=== PATIENT | male | born 1945 | race Caucasian/White ===

== ENCOUNTER 2016-09-07 08:48 | Outpatient (CLI) ==
[2016-09-07 09:13] LABS: HEMATOCRIT 43.9 % (42.0-52.0); HEMOGLOBIN 15.4 g/dl (14.0-18.0); MEAN CORPUSCULAR HEMOGLOBIN 29.5 pg (27.0-31.0); MEAN CORPUSCULAR HGB CONC 35.1 (31.8-35.4); MEAN CORPUSCULAR VOLUME 84.1 fl (80.0-94.0); RED BLOOD COUNT 5.22 10^6/ul (4.70-6.10); WHITE BLOOD COUNT 4.84 K/ul (4.2-10.2)
[2016-09-07 09:31] LABS: ALBUMIN 3.9 g/dL (3.4-5.0); ANION GAP 10.2; BUN/CREATININE RATIO 11.42; CALCIUM 9.1 mg/dL (8.2-10.2); CREATININE 1.4 mg/dL (0.60-1.10); PHOSPHORUS 2.7 mg/dL (2.3-3.7); POTASSIUM 4.2 mmol/L (3.5-5.1); URIC ACID 6.9 mg/dL (2.6-7.2)
[2016-09-08 08:15] LABS: URINE CREATINE 274.4 mg/dL (Not Estab.)
== END 2016-09-07 08:49 | disposition home or self-care (01) ==
LOC: LAB 08:48
PROVIDERS: ATTEND Specialist
DX: N18.3 Chronic kidney disease, stage 3 (moderate) (principal)
CPT/HCPCS: 36415; 80069; 82570; 83970; 84156; 84550; 85027

== ENCOUNTER 2017-04-06 06:42 | Outpatient (CLI) ==
[2017-04-06 07:20] LABS: ALBUMIN 3.7 g/dL (3.4-5.0); ANION GAP 12.2; BUN/CREATININE RATIO 13.55; CALCIUM 9.4 mg/dL (8.2-10.2); CREATININE 1.18 mg/dL (0.60-1.10); PHOSPHORUS 2.8 mg/dL (2.3-3.7); POTASSIUM 4.2 mmol/L (3.5-5.1); URIC ACID 6.1 mg/dL (2.6-7.2)
[2017-04-07 15:15] LABS: URINE CREATININE 263.6 mg/dL (Not Estab.); URINE TOTAL PROTEIN 13.7 mg/dL (Not Estab.)
== END 2017-04-06 06:43 | disposition home or self-care (01) ==
LOC: LAB 06:42
PROVIDERS: ATTEND Specialist
DX: N18.3 Chronic kidney disease, stage 3 (moderate) (principal)
CPT/HCPCS: 36415; 80069; 82570; 83970; 84156; 84550

== ENCOUNTER 2017-10-15 08:29 | Outpatient (CLI) | END 2017-10-15 08:30 | disposition home or self-care (01) | LOC: LAB 08:29 | PROVIDERS: ATTEND Specialist | DX: N18.2 Chronic kidney disease, stage 2 (mild) (principal) | CPT/HCPCS: 36415; 80069; 82570; 83970; 84156; 84550; 85027 ==

== ENCOUNTER 2019-01-08 12:51 | Outpatient (CLI) | payer OTHER ==
--- NOTE | 2019-01-08 15:22 | DI ---
EXAM: Two views of the chest. History: Chronic obstructive pulmonary disease Findings: Heart size is normal. No focal consolidation. No appreciable pleural fluid and no pneumo thorax. No acute osseous abnormalities. Calcified granulomas are seen within the thorax. Impression: No acute cardiopulmonary process
== END 2019-01-08 12:52 | disposition home or self-care (01) ==
LOC: CAR 12:51 → EEVIPCON 13:00
PROVIDERS: ATTEND Internal Medicine
DX: R06.02 Shortness of breath (principal); J44.9 Chronic obstructive pulmonary disease, unspecified

== ENCOUNTER 2024-06-21 09:00 | Observation (INO) ==
--- NOTE | 2024-06-21 09:10 | ED.PDOC ---
General ED Provider: Dr. ABI NICHOLE MD Chief Complaint: Stroke Stated Complaint: Patient is a 78-year-old male with past medical history of Parkinson's disease, hypertension, hyperlipidemia who presents with complaint of confusion. The patient states that from around 6:30 AM yesterday till 7 PM he was confused where he could not do the things with his camper which she regularly does and could not figure out how to do it and even in the later of the day he was thinking his flashlight was cell phone and when he realized it was not the cell phone he could not operate his cell phone. Patient has chronic dizziness which is unchanged. Patient denies any headache, lightheadedness, blurry vision, tingling numbness or weakness of the extremities or any slurring of the speech. Patient denies any chest pain or shortness of breath. Patient denies any fever or chills or upper respiratory symptoms or nausea or vomiting or abdominal pain or diarrhea or any urinary symptoms. Patient states that it had happened once in the past. Patient denies any recent illnesses. Time Seen by Provider: 06/21/24 09:06 Mode of Arrival: Walk-In Information Source: Patient and Family Exam Limitations: No limitations Primary Care Provider: DOUG CHANDRA Nursing and Triage Documentation Reviewed and Agree: Yes What is Opioid Naive?: *Opioid Naive implies the patient is not already taking opioids or not chronically receiving opioids on a daily basis. *PRN dosing is not "usually" associated with tolerance. *Patients are at higher risk of over-sedation and aspiration. What is Opioid Tolerant?: *Opioid Tolerance implies less than the expected response to an opioid. *Acquired tolerance is defined by the patient taking 60mg of oral morphine daily (or equianalgesic dose of another opioid) for 1 week or more. *Often associated with chronic pain. *May take more than usual dose to achieve desired pain control. Neurological Deficit Complaint/Exam Patient Complains of: Reports Other (Confusion) Symptom Onset Unknown: No Symptom Onset Date: 06/20/24 Symptom Onset Time: 06:30 Onset: Sudden Symptoms Are: Resolved NIH Scale Score (see protocol): 0 IV t-PA Prescribed: No Reasons for not prescribing IV t-PA: Pt non compliant/refused (Not indicated as patient's symptoms have resolved.) Review of Systems Review Of Systems Constitutional: Reports No symptoms Eyes: Reports No symptoms Ears, Nose, Mouth, Throat: Reports No symptoms Respiratory: Reports No symptoms Cardiac: Reports No symptoms GI: Reports No symptoms : Reports No symptoms Musculoskeletal: Reports No symptoms Skin: Reports No symptoms Neurological: Reports Other (Confusion) Endocrine: Reports No symptoms Hematologic/Lymphatic: Reports No symptoms All Other Systems: Reviewed and Negative [facility] Medical History (Updated 06/22/24 @ 02:41 by ABI NICHOLE MD) Parkinsons disease G20.A1 - Parkinson's disease without dyskinesia, without mention of fluctuations (ICD-10) Fatty liver K76.0 - Fatty (change of) liver, not elsewhere classified (ICD-10) Diabetes type 2 E11.9 - Type 2 diabetes mellitus without complications (ICD-10) HLD (hyperlipidemia) E78.5 - Hyperlipidemia, unspecified (ICD-10) HTN (hypertension) I10 - Essential (primary) hypertension (ICD-10) TIA (transient ischemic attack) G45.9 - Transient cerebral ischemic attack, unspecified (ICD-10) Physical Exam Physical Exam Appearance: Reports Well-appearing, No pain distress and Well-nourished Ill-appearing: None Pain Distress: None Eyes: Reports ROB, EOMI and Conjunctiva clear ENT: Reports Ears normal, Nose normal and Oropharynx normal Neck: Supple Respiratory: Reports Breath sounds clear, Breath sounds equal and Respirations nonlabored Cardiovascular: Reports RRR, Pulses normal and No murmur GI/: Reports Soft and Nontender Musculoskeletal: Reports Normal strength, ROM intact, No edema and No calf tenderness Skin: Reports Warm and Normal color Neurological: Reports Sensation intact, Motor intact, Reflexes intact, Cranial nerves intact, Alert and Oriented; Denies Focal Deficit Psychiatric: Reports Affect appropriate and Mood appropriate Interpretation EKG Interpretation EKG Interpretation By: ED Physician Time of EKG #1: 09:23 Rate: Normal (73) Rhythm: Sinus Ectopy: None [place]: NL ST Segment: Normal Interpretation: NSR, heart rate of 73 bpm, normal intervals. No STEMI. Course Course 06/21/24 09:10 06/21/24 09:10 Orders, Labs, Meds: Lab Review 06/21/24 06/21/24 06/21/24 09:10 10:05 10:18 WBC 3.98 L RBC 4.61 L Hgb 14.0 Hct 40.7 L MCV 88.3 MCH 30.4 MCHC 34.4 RDW Coeff of Susan 13.4 Plt Count 157 Immature Gran % (Auto) 0.0 Neut % (Auto) 61.8 Lymph % (Auto) 28.1 [place] % (Auto) 7.3 Eos % (Auto) 2.3 Baso % (Auto) 0.5 Neut # (Auto) 2.5 Lymph # (Auto) 1.1 [place] # (Auto) 0.3 L Eos # (Auto) 0.1 Baso # (Auto) 0.0 Immature Gran # (Auto) 0.0 Sodium 138.7 Potassium 3.80 Chloride 105.3 Carbon Dioxide 26.4 Anion Gap 10.80 BUN 19.4 Creatinine 1.10 Estimated GFR (MDRD) 65.00 BUN/Creatinine Ratio 17.63 Glucose 166.5 H Calcium 8.86 Magnesium 1.98 Total Bilirubin 1.02 AST 25.6 ALT 15.5 Alkaline Phosphatase 69.9 Troponin I < 0.012 Total Protein 6.79 Albumin 3.95 Globulin 2.84 Albumin/Globulin Ratio 1.39 Urine Color Yellow Urine Clarity Clear Urine pH 6.0 Ur Specific [place] >=1.030 Urine Protein 1+ H Urine Glucose (UA) Negative Urine Ketones Trace H Urine Blood Negative Urine Nitrite Negative Urine Bilirubin Negative Urine Urobilinogen 0.2 Ur Leukocyte Esterase Negative Urine Opiates Screen Negative Ur Oxycodone Screen Negative Urine Methadone Screen Negative Ur Barbiturates Screen Negative U Tricyclic Antidepress Negative Ur Phencyclidine Scrn Negative Ur Amphetamine Screen Negative U Methamphetamines Scrn Negative U Benzodiazepines Scrn Negative Urine Cocaine Screen Negative U Cannabinoids Screen Negative Plasma/Serum Alcohol < 10.0 Influ A Molecular Assay Influ B Molecular Assay SARS CoV-2 RNA Rapid BECCA Negative 06/21/24 11:45 WBC RBC Hgb Hct MCV MCH MCHC RDW Coeff of Susan Plt Count Immature Gran % (Auto) Neut % (Auto) Lymph % (Auto) [place] % (Auto) Eos % (Auto) Baso % (Auto) Neut # (Auto) Lymph # (Auto) [place] # (Auto) Eos # (Auto) Baso # (Auto) Immature Gran # (Auto) Sodium Potassium Chloride Carbon Dioxide Anion Gap BUN Creatinine Estimated GFR (MDRD) BUN/Creatinine Ratio Glucose Calcium Magnesium Total Bilirubin AST ALT Alkaline Phosphatase Troponin I Total Protein Albumin Globulin Albumin/Globulin Ratio Urine Color Urine Clarity Urine pH Ur Specific [place] Urine Protein Urine Glucose (UA) Urine Ketones Urine Blood Urine Nitrite Urine Bilirubin Urine Urobilinogen Ur Leukocyte Esterase Urine Opiates Screen Ur Oxycodone Screen Urine Methadone Screen Ur Barbiturates Screen U Tricyclic Antidepress Ur Phencyclidine Scrn Ur Amphetamine Screen U Methamphetamines Scrn U Benzodiazepines Scrn Urine Cocaine Screen U Cannabinoids Screen Plasma/Serum Alcohol Influ A Molecular Assay Negative by naat Influ B Molecular Assay Negative by naat SARS CoV-2 RNA Rapid BECCA Orders Category Date Time Status ADMIT OBSERVATION [PLACE PATIENT OBSERVATION] .TO ADMISSION 06/21/24 12:19 Active MEDSURG (MONITORED BED) EKG-(ED ONLY) Stat CARDIO 06/21/24 09:09 Completed ACTIVITY .Early Mobilization for VTE Prevention CARE 06/21/24 12:22 Active INTAKE & OUTPUT Q8HR CARE 06/21/24 12:22 Active TELEMETRY MONITORING TELE CARE 06/21/24 12:19 Active VITAL SIGNS Q4HR CARE 06/21/24 12:22 Active Orthostatic Vital Signs [ED ORTHOSTATIC VITAL SIGNS] . EMERGENCY 06/21/24 09:09 Active ONCE ALCOHOL LEVEL [BLOOD ALCOHOL] Stat LAB 06/21/24 09:10 Completed CBC W/ AUTO DIFF DAILY@0600 LAB 06/22/24 06:00 Ordered CBC W/ AUTO DIFF DAILY@0600 LAB 06/23/24 06:00 Ordered CBC W/ AUTO DIFF Stat LAB 06/21/24 09:10 Completed CMP [COMPREHENSIVE METABOLIC PANEL] Stat LAB 06/21/24 09:10 Completed COMPREHENSIVE METABOLIC PANEL DAILY@0600 LAB 06/22/24 06:00 Ordered COMPREHENSIVE METABOLIC PANEL DAILY@0600 LAB 06/23/24 06:00 Ordered FLU A & B MOLECULAR [FLU A/B MOLECULAR] Stat LAB 06/21/24 11:45 Completed MAGNESIUM Stat LAB 06/21/24 09:10 Completed SARS COV-2 RNA RAPID BECCA Stat LAB 06/21/24 10:18 Completed TROPONIN I Stat LAB 06/21/24 09:10 Completed UA [URINALYSIS C & S IF INDICATED] Stat LAB 06/21/24 10:05 Completed URINE DRUG SCREEN (RAPID FOR ED) [DRUG SCREEN, URINE, LAB 06/21/24 10:05 Completed RAPID] Stat Acetaminophen [Tylenol] Meds 06/21/24 12:22 Active 650 mg PO Q4H PRN Sodium Chloride 0.9% [Sodium Chloride] 1,000 ml Meds 06/21/24 12:30 Active IV 75 mls/hr CHEST, 1V AP ONLY Stat RADS 06/21/24 09:[address] HEAD W/O CONTRAST Stat RADS 06/21/24 09:27 Completed Medications Generic Name Dose Route Start Last Admin Trade Name Freq PRN Reason Stop Dose Admin Acetaminophen 650 mg 06/21/24 12:22 Acetaminophen 325 Mg Tablet PO Q4H PRN Mild Pain Atorvastatin Calcium 10 mg 06/22/24 09:00 Atorvastatin Calcium 10 Mg Tablet PO DAILY SYED Carbidopa/Levodopa 2 tab 06/21/24 21:00 06/21/24 20:45 Carbidopa/Levodopa 25/100 Tablet PO 2 tab 3XD SYED Administration Docusate Sodium 250 mg 06/22/24 09:00 Docusate Sodium 100 Mg Capsule PO DAILY SYED Sodium Chloride 1,000 mls @ 75 mls/hr 06/21/24 12:30 06/22/24 02:24 Sodium Chloride IV 75 mls/hr .[id number] SYED Administration Pantoprazole Sodium 40 mg 06/22/24 06:30 Pantoprazole Sodium 40 Mg Tablet. PO 0630 SYED Sitagliptin Phosphate 100 mg 06/22/24 09:00 Sitagliptin Phosphate 50 Mg Tablet PO DAILY SYED Vital Signs: Temp Pulse Resp BP Pulse Ox 06/21/24 09:45 79 148/78 H 06/21/24 09:44 74 172/77 H 06/21/24 09:44 68 119/79 06/21/24 09:02 99.5 F 78 16 161/73 H 97 Differential diagnosis include but not limited to TIA, CVA, hypoglycemia, seizure, hemiplegic migraines, Parkinson's, hyponatremia, hyponatremia, arrhythmia. ER course: Patient is a 78-year-old male who presented with almost 24 hours of onset of confusion which now has resolved. Patient was worked up for TIA/CVA. CT of the head was discussed with the radiologist who informed it is negative for any acute findings. The tremor patient has is from his Parkinson's which is at his baseline. Will admit the patient further stroke workup. Discussed with Martell Rahman NP for the hospitalist Dr. Luis Carlos Treadwell. Patient admitted to the floors. NIH Stroke Scale 1a. Level of Consciousness: 0=Alert and keenly responsive 1b. Level of Consciousness Questions: 0=Answers correctly to two questions 1c. Level of Consciousness Commands: 0=Performs two tasks correctly 2. Best Gaze: 0=Normal 3. Visual: 0=No visual loss 4. Facial Palsy: 0=Normal 5a. Motor Left Arm: 0=No drift,arm holds 90 degrees for 10 sec., leg 30 degrees for 5 sec. 5b. Motor Right Arm: 0=No drift,arm holds 90 degrees for 10 sec., leg 30 degrees for 5 sec. 6a. Motor Left Le=No drift,arm holds 90 degrees for 10 sec., leg 30 degrees for 5 sec. 6b. Motor Right Le=No drift,arm holds 90 degrees for 10 sec., leg 30 degrees for 5 sec. 7. Limb Ataxia: 0=Absent 8. Sensory: 0=Normal 9. Best Language: 0=No aphasia 10. Dysarthria: 0=Normal 11. Extincion and Inattention: 0=Normal Stroke Scale Total: 0 Discharge Plan Discharge Patient Disposition: ADMITTED INPATIENT Discharge Problem: Brain TIA, Confusion after a seizure Did you review [place] [facility] for ALL controlled substances?: Not Applicable ED Provider: ABI NICHOLE
[2024-06-21 09:20] LABS: BASOPHILS % (AUTO) 0.5 % (0.0-3.0); EOSINOPHILS # (AUTO) 0.1 K/ul (0.0-0.7); EOSINOPHILS % (AUTO) 2.3 % (0.0-7.0); HEMATOCRIT 40.7 % (42.0-52.0); LYMPHOCYTES # (AUTO) 1.1 K/uL (0.60-3.4); LYMPHOCYTES % (AUTO) 28.1 (10.0-50.0); MEAN CORPUSCULAR HEMOGLOBIN 30.4 pg (27.0-31.0); MEAN CORPUSCULAR HGB CONC 34.4 (31.8-35.4); MEAN CORPUSCULAR VOLUME 88.3 fl (80.0-94.0); MONOCYTES # (AUTO) 0.3 K/uL (0.4-2.0); MONOCYTES % (AUTO) 7.3 (0-10); NEUTROPHILS # (AUTO) 2.5 K/ul (2.0-6.9); NEUTROPHILS % (AUTO) 61.8 % (42.2-75.2); PLATELET COUNT 157 10^3/uL (140-440); RDW COEFFICIENT OF VARIATION 13.4 % (11.6-14.8); RED BLOOD COUNT 4.61 10^6/ul (4.70-6.10); WHITE BLOOD COUNT 3.98 K/ul (4.2-10.2)
[2024-06-21 09:32] LABS: ALANINE AMINOTRANSFERASE 15.5 U/L (0-50); ALBUMIN 3.95 g/dL (3.5-5.0); ALKALINE PHOSPHATASE 69.9 U/L (56-119); ASPARTATE AMINO TRANSFERASE 25.6 U/L (17-59); BILIRUBIN,TOTAL 1.02 mg/dL (0.2-1.3); BLOOD UREA NITROGEN 19.4 mg/dL (9-20); CALCIUM 8.86 mg/dL (8.4-10.2); CARBON DIOXIDE 26.4 mmol/L (22-30.0); CHLORIDE 105.3 mmol/L (98-107); GLUCOSE 166.5 mg/dL (74-106); MAGNESIUM 1.98 mg/dL (1.6-2.3); SODIUM 138.7 mmol/L (134.5-145); TOTAL PROTEIN 6.79 g/dL (6.3-8.2)
[2024-06-21 09:43] LABS: BLOOD ALCOHOL < 10.0 mg/dL (0.0-50.0); TROPONIN I < 0.012 ng/ml (0.0000-0.120)
--- NOTE | 2024-06-21 09:52 | CT ---
EXAM: BRAIN CT WITHOUT CONTRAST 06/21/2024 INDICATION: Stroke like symptoms COMPARISON: None. TECHNIQUE: Unenhanced CT of the head was performed from the skull base to the vertex. FINDINGS: No intracranial hemorrhage or extra-axial collection. No mass, mass effect or midline shift. The juan -white matter differentiation is preserved. Cerebral volume loss. There are patchy subcortical and pe riventricular white matter hypodensities, most commonly seen in chronic white matter microvascular is chemic changes. No acute hydrocephalus. The basal cisterns are patent. The visualized paranasal sin uses and mastoid air cells are clear. The orbits are unremarkable. The visualized osseous structure s are unremarkable. IMPRESSION: - No acute intracranial hemorrhage or mass effect. MRI can be obtained for further evaluation as clin ically indicated. - Senescent changes. Communication: Findings in the impression were discussed with Dr. Huitron by Dr. Waller at 9:[address] scans are performed using dose optimization techniques as appropriate to the performed exam an d include at least one of the following: Automated exposure control, adjustment of the mA and/or kV according t o size, and the use of iterative reconstruction technique.
--- NOTE | 2024-06-21 09:55 | DI ---
EXAM: SINGLE FRONTAL VIEW OF THE CHEST HISTORY: Shortness of breath. COMPARISON: Chest x-ray 01/08/2019 FINDINGS: The cardiomediastinal silhouette is unchanged. There is no pneumothorax or effusion. Ther e is no consolidation, nodule or mass. The osseous structures demonstrate degenerative change. IMPRESSION: No acute cardiopulmonary process
[2024-06-21 10:36] LABS: SARS COV-2 RNA RAPID NAAT NEGATIVE (NEGATIVE)
[2024-06-21 10:43] LABS: BILIRUBIN,URINE Negative (NEGATIVE); CLARITY,URINE Clear (CLEAR); COLOR,URINE Yellow (YELLOW); GLUCOSE, URINE (UA) Negative (NEGATIVE); KETONES,URINE Trace (NEGATIVE); LEUKOCYTE ESTERASE ,URINE Negative (NEGATIVE); NITRITE,URINE Negative (NEGATIVE); PROTEIN,URINE 1+ (NEGATIVE); URINE, BLOOD Negative (NEGATIVE); UROBILINOGEN,URINE 0.2 (0.2)
[2024-06-21 10:49] LABS: AMPHETAMINE SCREEN,URINE NEGATIVE (NEGATIVE); BARBITURATE SCREEN,URINE NEGATIVE (NEGATIVE); BENZODIAZEPINES SCREEN,URINE NEGATIVE (NEGATIVE); CANNABINOID SCREEN,URINE NEGATIVE (NEGATIVE); COCAIN SCREEN,URINE NEGATIVE (NEGATIVE); METHADONE URINE SCREEN NEGATIVE (NEGATIVE); METHAMPHETAMINES SCREEN,URINE NEGATIVE (NEGATIVE); OPIATE SCREEN,URINE NEGATIVE (NEGATIVE); OXYCODONE URINE SCREEN NEGATIVE (NEGATIVE); PHENCYCLIDINE SCREEN,URINE NEGATIVE (NEGATIVE); TRICYCLIC ANTIDEPRESSANTS URIN NEGATIVE (NEGATIVE)
[2024-06-21 12:04] LABS: MOLECULAR FLU A NEGATIVE BY NAAT (NEGATIVE); MOLECULAR FLU B NEGATIVE BY NAAT (NEGATIVE)
[2024-06-21] MEDS ORDERED: TYLENOL PO PRN (12:22)
[2024-06-21] MEDS: SODIUM CHLORIDE 1,000 ML IV SCH (13:55)
--- NOTE | 2024-06-21 14:02 | PCM ---
Date of Service Date Seen by Provider: 06/21/24 Time Seen by Provider: 13:45 Admit Day/Time Admission Date: 06/21/24 Admission Time: 11:40 Reason for Admission Chief Complaint: TIA Hospital Provider Hospital Provider: SHELLIE CHADWICK, [facility] [place] Primary Care Physician Primary Care Physician: DOUG CHANDRA History of Present Illness History of Present Illness: 78 yo male with pmh of TIA, Parkinson's disease, HTN, HLD, DM2, and Fatty Liver presented to the ER with AMS. Patient states that last night around 6 pm he noticed he could not get his phone to work and could not figure out how to work it. Then later on in the night when going to bed he was trying to turn on the flashlight on his phone and couldn't. States he just felt different and wasn't tracking well. No signs of weakness, vision deficits, speech deficits, or other symptoms. States he has been dealing with ongoing dizziness. Most recent changes include: neurologist increasing his carbidopa/levodopa dose to 25/100 2 tabs TID from 1 tab on 04/14/24, stopped plavix on 04/17/24, and having frequent dizziness at home PCP decreased his benicar dose due to lower BPs. States he has not been able to tell a difference in his tremors with the dosage increase of his carbidopa. Dizziness continues to persist despite blood pressure medicine decrease. CT head negative. Labs unremarkable. Orthostatic vital signs positive from sitting to standing with a systolic drop from 172 to 148. Admitted to med/surg observation. Case Discussed With Case Discussed With: Patient's case was discussed with the ER Physicians, Dr. Brennan. [facility] Medical History (Updated 06/21/24 @ 14:11 by SHELLIE CHADWICK) Parkinsons disease G20.A1 - Parkinson's disease without dyskinesia, without mention of fluctuations (ICD-10) Fatty liver K76.0 - Fatty (change of) liver, not elsewhere classified (ICD-10) Diabetes type 2 E11.9 - Type 2 diabetes mellitus without complications (ICD-10) HLD (hyperlipidemia) E78.5 - Hyperlipidemia, unspecified (ICD-10) HTN (hypertension) I10 - Essential (primary) hypertension (ICD-10) TIA (transient ischemic attack) G45.9 - Transient cerebral ischemic attack, unspecified (ICD-10) Allergies Allergies Allergy/AdvReac Type Severity Reaction Status Date / Time prochlorperazine (From AdvReac Intermediate SPASM Verified 06/21/24 09:11 Compazine) Current Medications Home Medications Acetaminophen (Acetaminophen 325 Mg Tablet) 650 mg PO Q4H PRN PRN Reason: Mild Pain Sodium Chloride (Sodium Chloride) 1,000 mls @ 75 mls/hr IV .[id number] SYED Last Admin: 06/21/24 13:55 Dose: 75 mls/hr clopidogrel 75 mg tablet (Plavix) 75 mg PO DAILY 07/07/22 [History Confirmed 06/21/24] esomeprazole magnesium 40 mg capsule,delayed release (Nexium) 40 mg PO DAILY 07/07/22 [History Confirmed 06/21/24] olmesartan 20 mg tablet (Benicar) 20 mg PO DAILY 07/07/22 [History Confirmed 06/21/24] sitagliptin phosphate 100 mg tablet (Januvia) 100 mg PO DAILY 07/07/22 [History Confirmed 06/21/24] atorvastatin 10 mg tablet 10 mg PO DAILY 06/21/24 [History Confirmed 06/21/24] carbidopa 25 mg-levodopa 100 mg tablet 2 tab PO 3XD 06/21/24 [History Confirmed 06/21/24] docusate sodium 250 mg capsule 250 mg PO DAILY 06/21/24 [History Confirmed 06/21/24] Opioid Naive vs. Tolerant Does Patient Take Opioids?: No Is Patient Opioid Naive?: Yes What is Opioid Naive?: *Opioid Naive implies the patient is not already taking opioids or not chronically receiving opioids on a daily basis. *PRN dosing is not "usually" associated with tolerance. *Patients are at higher risk of over-sedation and aspiration. Is Patient Opioid Tolerant?: No What is Opioid Tolerant?: *Opioid Tolerance implies less than the expected response to an opioid. *Acquired tolerance is defined by the patient taking 60mg of oral morphine daily (or equianalgesic dose of another opioid) for 1 week or more. *Often associated with chronic pain. *May take more than usual dose to achieve desired pain control. Review of Systems Constitutional: Reports No symptoms Head: Reports Normocephalic Eyes: Reports No symptoms Ears: Reports No symptoms Nose: Reports No symptoms Mouth: Reports No symptoms Throat: Reports No symptoms Cardiovascular: Reports No symptoms Respiratory: Reports No symptoms Gastrointestinal: Reports No symptoms Genitourinary: Reports No Symptoms Musculoskeletal: Reports No symptoms Endocrine: Reports No symptoms Hematology: Reports No symptoms Neurological: Reports Dizziness and Memory Loss (confusion/forgetfulness) Psychiatric: Reports No symptoms Physical examination Most Recent Vital Signs: Most Recent Vital Signs Temperature 99.5 F 06/21/24 09:02 Temperature Source Temporal Artery Scan 06/21/24 09:02 Pulse Rate 79 06/21/24 09:45 Respiratory Rate 16 06/21/24 09:02 Blood Pressure 148/78 H 06/21/24 09:45 Blood Pressure Location Left Arm 06/21/24 09:45 Blood Pressure Position Standing 06/21/24 09:45 O2 Sat by Pulse Oximetry 97 06/21/24 09:02 Height 6 ft 06/21/24 09:02 Weight 77.9 kg 06/21/24 09:02 Appearance: Positive No Apparent Distress and Alert and Oriented x3 Skin: Positive Warm and Good Turgor HEENT: Positive Normocephalic and PERRLA Neck: Positive Supple and Midline Trachea Chest/Lungs: Positive Symmetrical With Equal Breath Sounds, Clear to Auscultation Bilaterally and Good Air Movement all 4 Lung Platt Heart: Positive RRR and Pulses Normal GI/: Positive Soft, Nontender, Bowel Sounds Normal and No Distention Musculoskeletal: Positive Not Examined Extremities: Positive Intact Peripheral Pulses, Stable Joints Without Laxity and Good ROM in All Joints Neurological: Positive Sensation Intact, Motor intact, Reflexes Intact (diminished, baseline per chart review), Alert, Oriented and Muscle Strength 5/5 in Upper and Lower Extremities Bilaterally; Negative Focal Deficit Labs This Visit Labs This Visit: Labs This Visit 06/21/24 06/21/24 06/21/24 09:10 10:05 10:18 WBC 3.98 L RBC 4.61 L Hgb 14.0 Hct 40.7 L MCV 88.3 MCH 30.4 MCHC 34.4 RDW Coeff of Susan 13.4 Plt Count 157 Immature Gran % (Auto) 0.0 Neut % (Auto) 61.8 Lymph % (Auto) 28.1 [place] % (Auto) 7.3 Eos % (Auto) 2.3 Baso % (Auto) 0.5 Neut # (Auto) 2.5 Lymph # (Auto) 1.1 [place] # (Auto) 0.3 L Eos # (Auto) 0.1 Baso # (Auto) 0.0 Immature Gran # (Auto) 0.0 Sodium 138.7 Potassium 3.80 Chloride 105.3 Carbon Dioxide 26.4 Anion Gap 10.80 BUN 19.4 Creatinine 1.10 Estimated GFR (MDRD) 65.00 BUN/Creatinine Ratio 17.63 Glucose 166.5 H Calcium 8.86 Magnesium 1.98 Total Bilirubin 1.02 AST 25.6 ALT 15.5 Alkaline Phosphatase 69.9 Troponin I < 0.012 Total Protein 6.79 Albumin 3.95 Globulin 2.84 Albumin/Globulin Ratio 1.39 Urine Color Yellow Urine Clarity Clear Urine pH 6.0 Ur Specific [place] >=1.030 Urine Protein 1+ H Urine Glucose (UA) Negative Urine Ketones Trace H Urine Blood Negative Urine Nitrite Negative Urine Bilirubin Negative Urine Urobilinogen 0.2 Ur Leukocyte Esterase Negative Urine Opiates Screen Negative Ur Oxycodone Screen Negative Urine Methadone Screen Negative Ur Barbiturates Screen Negative U Tricyclic Antidepress Negative Ur Phencyclidine Scrn Negative Ur Amphetamine Screen Negative U Methamphetamines Scrn Negative U Benzodiazepines Scrn Negative Urine Cocaine Screen Negative U Cannabinoids Screen Negative Plasma/Serum Alcohol < 10.0 Influ A Molecular Assay Influ B Molecular Assay SARS CoV-2 RNA Rapid BECCA Negative 06/21/24 11:45 WBC RBC Hgb Hct MCV MCH MCHC RDW Coeff of Susan Plt Count Immature Gran % (Auto) Neut % (Auto) Lymph % (Auto) [place] % (Auto) Eos % (Auto) Baso % (Auto) Neut # (Auto) Lymph # (Auto) [place] # (Auto) Eos # (Auto) Baso # (Auto) Immature Gran # (Auto) Sodium Potassium Chloride Carbon Dioxide Anion Gap BUN Creatinine Estimated GFR (MDRD) BUN/Creatinine Ratio Glucose Calcium Magnesium Total Bilirubin AST ALT Alkaline Phosphatase Troponin I Total Protein Albumin Globulin Albumin/Globulin Ratio Urine Color Urine Clarity Urine pH Ur Specific [place] Urine Protein Urine Glucose (UA) Urine Ketones Urine Blood Urine Nitrite Urine Bilirubin Urine Urobilinogen Ur Leukocyte Esterase Urine Opiates Screen Ur Oxycodone Screen Urine Methadone Screen Ur Barbiturates Screen U Tricyclic Antidepress Ur Phencyclidine Scrn Ur Amphetamine Screen U Methamphetamines Scrn U Benzodiazepines Scrn Urine Cocaine Screen U Cannabinoids Screen Plasma/Serum Alcohol Influ A Molecular Assay Negative by naat Influ B Molecular Assay Negative by naat SARS CoV-2 RNA Rapid BECCA Imaging Imaging: EXAM: BRAIN CT WITHOUT CONTRAST 06/21/2024 FINDINGS: No intracranial hemorrhage or extra-axial collection. No mass, mass effect or midline shift. The juan-white matter differentiation is preserved. Cerebral volume loss. There are patchy subcortical and periventricular white matter hypodensities, most commonly seen in chronic white matter microvascular ischemic changes. No acute hydrocephalus. The basal cisterns are patent. The visualized paranasal sinuses and mastoid air cells are clear. The orbits are unremarkable. The visualized osseous structures are unremarkable. IMPRESSION: - No acute intracranial hemorrhage or mass effect. MRI can be obtained for further evaluation as clinically indicated. - Senescent changes. Communication: Findings in the impression were discussed with Dr. Huitron by Dr. Waller at 9:46 AM Review Statement Review Statement: I have independently reviewed and interpreted the labs/EKGs/imaging that were ordered by the ER provider. I have reviewed all outside records that are available currently in our EMR including imaging/notes/labs from previous visits. Plan Plan: 1. TIA - work-up for CVA negative thus far, unable to get MRI until Sunday or Sunday, discussed could potentially order outpatient if patient requests, symptoms have resolved currently, discussed anticoagulation with patient and requested I discuss with his prior to starting anything, neurochecks Q4H 2. Orthostatic Hypotension - NS@75mL/hr, hold antihypertensives, serial orthostatics Q8H 3. Parkionson's disease - Chronic, follows with [facility], continue home medications 4. DM2 - chronic, ADA diet, continue januvia DVT Prophylaxis: Ambulation Time Spent: Greater than 80 minutes spent with patient, 50% of the time spent with this patient was devoted to counseling and coordination of care. [facility] minutes spent discussing advance care planning. Disposition: Admit to: Med/surg Observation Full code Discussed Plan of Care with Dr. Nakita Treadwell. Medications Medication Orders: Medications Ordered Category Date Time Status Acetaminophen [Tylenol] Meds 06/21/24 12:22 Active 650 mg PO Q4H PRN Sodium Chloride 0.9% [Sodium Chloride] 1,000 ml Meds 06/21/24 12:30 Active IV 75 mls/hr
[2024-06-21 14:23] VITALS: BMI 23.2
[2024-06-21] MEDS: SINEMET 25-100 PO SCH (20:45)
[2024-06-22] MEDS: PROTONIX PO SCH (05:35)
[2024-06-22 06:05] LABS: BASOPHILS % (AUTO) 0.6 % (0.0-3.0); EOSINOPHILS # (AUTO) 0.1 K/ul (0.0-0.7); EOSINOPHILS % (AUTO) 3.5 % (0.0-7.0); HEMATOCRIT 38.2 % (42.0-52.0); HEMOGLOBIN 12.9 g/dl (14.0-18.0); LYMPHOCYTES # (AUTO) 0.9 K/uL (0.60-3.4); LYMPHOCYTES % (AUTO) 28.1 (10.0-50.0); MEAN CORPUSCULAR HEMOGLOBIN 30.1 pg (27.0-31.0); MEAN CORPUSCULAR HGB CONC 33.8 (31.8-35.4); MONOCYTES # (AUTO) 0.3 K/uL (0.4-2.0); MONOCYTES % (AUTO) 8.8 (0-10); NEUTROPHILS # (AUTO) 1.9 K/ul (2.0-6.9); PLATELET COUNT 128 10^3/uL (140-440); RDW COEFFICIENT OF VARIATION 13.4 % (11.6-14.8); RED BLOOD COUNT 4.29 10^6/ul (4.70-6.10); WHITE BLOOD COUNT 3.17 K/ul (4.2-10.2)
[2024-06-22 06:23] LABS: ALANINE AMINOTRANSFERASE 6.8 U/L (0-50); ALBUMIN 3.47 g/dL (3.5-5.0); ALKALINE PHOSPHATASE 61.5 U/L (56-119); ASPARTATE AMINO TRANSFERASE 26.5 U/L (17-59); BILIRUBIN,TOTAL 0.85 mg/dL (0.2-1.3); BLOOD UREA NITROGEN 14.4 mg/dL (9-20); CALCIUM 8.36 mg/dL (8.4-10.2); CARBON DIOXIDE 25.8 mmol/L (22-30.0); CHLORIDE 105.5 mmol/L (98-107); CREATININE 1.03 mg/dL (0.60-1.10); GLUCOSE 144.7 mg/dL (74-106); POTASSIUM 3.75 mmol/L (3.5-5.1); SODIUM 138.7 mmol/L (134.5-145); TOTAL PROTEIN 6.13 g/dL (6.3-8.2)
[2024-06-22] MEDS ORDERED: COLACE PO SCH (09:00)
[2024-06-22] MEDS: JANUVIA PO SCH (09:19)
[2024-06-22] MEDS: COLACE PO SCH (09:19)
[2024-06-22] MEDS: LIPITOR PO SCH (09:19)
[2024-06-22] MEDS: SODIUM CHLORIDE 1,000 ML IV SCH (12:17)
--- NOTE | 2024-06-22 12:41 | PCM.PROG ---
Provider Provider: SHELLIE CHADWICK, [facility] Chief Complaint Chief Complaint: TIA Subjective Subjective: No further episodes. Continues to be orthostatic with fluids. at bedside. Discussed plavix and does not wish to restart at this time due to unsure if patient has had CVA/TIA or if this is due to orthostatic hypotension. discussed to continue fluids another 24 hours and lower carbidopa/levodopa back down to 1 tab tid and see if improvement is noted. Objective Appearance: Positive No Apparent Distress and Alert and Oriented x3 Chest/Lungs: Positive Symmetrical With Equal Breath Sounds, Clear to Auscultation Bilaterally and Good Air Movement all 4 Lung Platt Heart: Positive RRR and Pulses Normal GI/: Positive Soft, Nontender, Bowel Sounds Normal and No Distention Musculoskeletal: Positive Not Examined Neurological: Positive Sensation Intact, Motor intact, Alert, Oriented and Muscle Strength 5/5 in Upper and Lower Extremities Bilaterally Vital Signs Vital Signs: Vital Signs: Last 24 Hours 06/21/24 13:38 06/21/24 13:38 06/21/24 13:55 Temperature 97.7 F Temperature Source Tympanic Pulse Rate 75 Pulse Rate [Apical] Respiratory Rate 16 16 Blood Pressure Blood Pressure Mean Blood Pressure Left Arm 155/92 Blood Pressure Location Blood Pressure Position Sitting O2 Sat by Pulse Oximetry 99 Oxygen Delivery Method Room Air Room Air Height 6 ft Weight 77.7 kg Telemetry Type Remote Telemetry Telemetry Monitoring Started Irregular Telemetry Rate (Approximate) 70-80 BPM Telemetry Heart Rate 73 EKG GA Interval 0.13 EKG QRS Interval 0.06 Telemetry Strip Reading SR 06/21/24 14:00 06/21/24 14:00 06/21/24 14:59 Temperature Temperature Source Pulse Rate 68 79 Pulse Rate [Apical] Respiratory Rate Blood Pressure 139/69 158/77 H Blood Pressure Mean Blood Pressure Left Arm Blood Pressure Location Right Arm Right Arm Blood Pressure Position Supine Sitting O2 Sat by Pulse Oximetry Oxygen Delivery Method Room Air Height Weight Telemetry Type Telemetry Monitoring Irregular Telemetry Rate (Approximate) Telemetry Heart Rate EKG GA Interval EKG QRS Interval Telemetry Strip Reading 06/21/24 15:00 06/21/24 15:00 06/21/24 16:00 Temperature Temperature Source Pulse Rate 94 Pulse Rate [Apical] Respiratory Rate Blood Pressure 115/70 Blood Pressure Mean Blood Pressure Left Arm Blood Pressure Location Right Arm Blood Pressure Position Standing O2 Sat by Pulse Oximetry Oxygen Delivery Method Room Air Room Air Height Weight Telemetry Type Telemetry Monitoring Irregular Telemetry Rate (Approximate) Telemetry Heart Rate EKG GA Interval EKG QRS Interval Telemetry Strip Reading 06/21/24 16:49 06/21/24 18:00 06/21/24 18:00 Temperature 97.9 F Temperature Source Temporal Artery Scan Pulse Rate 77 Pulse Rate [Apical] Respiratory Rate 14 Blood Pressure 118/68 Blood Pressure Mean 84 Blood Pressure Left Arm Blood Pressure Location Right Arm Blood Pressure Position O2 Sat by Pulse Oximetry 97 Oxygen Delivery Method Room Air Room Air Room Air Height Weight Telemetry Type Telemetry Monitoring Irregular Telemetry Rate (Approximate) Telemetry Heart Rate EKG GA Interval EKG QRS Interval Telemetry Strip Reading 06/21/24 19:00 06/21/24 19:00 06/21/24 20:00 Temperature Temperature Source Pulse Rate Pulse Rate [Apical] Respiratory Rate Blood Pressure Blood Pressure Mean Blood Pressure Left Arm Blood Pressure Location Blood Pressure Position O2 Sat by Pulse Oximetry Oxygen Delivery Method Room Air Room Air Height Weight Telemetry Type Bedside Monitor Telemetry Monitoring Continues Irregular Telemetry Rate (Approximate) Telemetry Heart Rate 71 EKG GA Interval 0.17 EKG QRS Interval 0.06 Telemetry Strip Reading SINUS RHYTHM 06/21/24 20:00 06/21/24 20:47 06/21/24 20:48 Temperature 97.8 F Temperature Source Temporal Artery Scan Pulse Rate 77 Pulse Rate [Apical] 70 Respiratory Rate 21 H Blood Pressure 121/72 121/72 Blood Pressure Mean 88 Blood Pressure Left Arm Blood Pressure Location Right Arm Right Arm Blood Pressure Position Standing Standing O2 Sat by Pulse Oximetry 98 Oxygen Delivery Method Room Air Room Air Height Weight Telemetry Type Telemetry Monitoring Irregular Telemetry Rate (Approximate) Telemetry Heart Rate EKG GA Interval EKG QRS Interval Telemetry Strip Reading 06/21/24 20:48 06/21/24 20:49 06/21/24 21:00 Temperature Temperature Source Pulse Rate Pulse Rate [Apical] Respiratory Rate Blood Pressure 126/72 123/69 Blood Pressure Mean Blood Pressure Left Arm Blood Pressure Location Right Arm Right Arm Blood Pressure Position Supine Sitting O2 Sat by Pulse Oximetry Oxygen Delivery Method Room Air Height Weight Telemetry Type Telemetry Monitoring Irregular Telemetry Rate (Approximate) Telemetry Heart Rate EKG GA Interval EKG QRS Interval Telemetry Strip Reading 06/21/24 22:00 06/21/24 23:00 06/22/24 00:00 Temperature Temperature Source Pulse Rate Pulse Rate [Apical] Respiratory Rate Blood Pressure Blood Pressure Mean Blood Pressure Left Arm Blood Pressure Location Blood Pressure Position O2 Sat by Pulse Oximetry Oxygen Delivery Method Room Air Room Air Room Air Height Weight Telemetry Type Telemetry Monitoring Irregular Telemetry Rate (Approximate) Telemetry Heart Rate EKG GA Interval EKG QRS Interval Telemetry Strip Reading 06/22/24 01:00 06/22/24 01:00 06/22/24 02:00 Temperature Temperature Source Pulse Rate 66 Pulse Rate [Apical] Respiratory Rate 16 Blood Pressure Blood Pressure Mean Blood Pressure Left Arm Blood Pressure Location Blood Pressure Position O2 Sat by Pulse Oximetry Oxygen Delivery Method Room Air Room Air Height Weight Telemetry Type Bedside Monitor Telemetry Monitoring Continues Irregular Telemetry Rate (Approximate) Telemetry Heart Rate 88 EKG GA Interval 0.22 H EKG QRS Interval 0.07 Telemetry Strip Reading SINUS RHYTHM WITH 1ST AVB 06/22/24 02:00 06/22/24 03:00 06/22/24 04:00 Temperature Temperature Source Pulse Rate Pulse Rate [Apical] Respiratory Rate Blood Pressure Blood Pressure Mean Blood Pressure Left Arm Blood Pressure Location Blood Pressure Position O2 Sat by Pulse Oximetry Oxygen Delivery Method Room Air Room Air Room Air Height Weight Telemetry Type Telemetry Monitoring Irregular Telemetry Rate (Approximate) Telemetry Heart Rate EKG GA Interval EKG QRS Interval Telemetry Strip Reading 06/22/24 05:00 06/22/24 05:00 06/22/24 05:49 Temperature 97.3 F L Temperature Source Temporal Artery Scan Pulse Rate 66 Pulse Rate [Apical] Respiratory Rate 18 Blood Pressure 138/76 138/76 Blood Pressure Mean 96 Blood Pressure Left Arm Blood Pressure Location Right Arm Right Arm Blood Pressure Position Supine Supine O2 Sat by Pulse Oximetry 99 Oxygen Delivery Method Room Air Room Air Height Weight Telemetry Type Telemetry Monitoring Irregular Telemetry Rate (Approximate) Telemetry Heart Rate EKG GA Interval EKG QRS Interval Telemetry Strip Reading 06/22/24 05:54 06/22/24 05:55 06/22/24 06:00 Temperature Temperature Source Pulse Rate Pulse Rate [Apical] Respiratory Rate Blood Pressure 162/82 H 144/77 H Blood Pressure Mean Blood Pressure Left Arm Blood Pressure Location Right Arm Right Arm Blood Pressure Position Sitting Standing O2 Sat by Pulse Oximetry Oxygen Delivery Method Room Air Height Weight Telemetry Type Telemetry Monitoring Irregular Telemetry Rate (Approximate) Telemetry Heart Rate EKG GA Interval EKG QRS Interval Telemetry Strip Reading 06/22/24 07:00 06/22/24 07:00 06/22/24 08:00 Temperature Temperature Source Pulse Rate Pulse Rate [Apical] Respiratory Rate Blood Pressure Blood Pressure Mean Blood Pressure Left Arm Blood Pressure Location Blood Pressure Position O2 Sat by Pulse Oximetry Oxygen Delivery Method Room Air Room Air Height Weight Telemetry Type Remote Telemetry Telemetry Monitoring Continues Irregular Telemetry Rate (Approximate) 60-70 BPM Telemetry Heart Rate 65 EKG GA Interval 0.17 EKG QRS Interval 0.06 Telemetry Strip Reading sr 06/22/24 09:00 06/22/24 09:58 06/22/24 09:58 Temperature 97.8 F Temperature Source Temporal Artery Scan Pulse Rate 70 Pulse Rate [Apical] Respiratory Rate 18 Blood Pressure 135/75 Blood Pressure Mean 95 Blood Pressure Left Arm Blood Pressure Location Right Arm Blood Pressure Position Supine O2 Sat by Pulse Oximetry 98 Oxygen Delivery Method Room Air Room Air Room Air Height Weight Telemetry Type Telemetry Monitoring Irregular Telemetry Rate (Approximate) Telemetry Heart Rate EKG GA Interval EKG QRS Interval Telemetry Strip Reading 06/22/24 11:00 06/22/24 12:00 Temperature Temperature Source Pulse Rate Pulse Rate [Apical] Respiratory Rate Blood Pressure Blood Pressure Mean Blood Pressure Left Arm Blood Pressure Location Blood Pressure Position O2 Sat by Pulse Oximetry Oxygen Delivery Method Room Air Room Air Height Weight Telemetry Type Telemetry Monitoring Irregular Telemetry Rate (Approximate) Telemetry Heart Rate EKG GA Interval EKG QRS Interval Telemetry Strip Reading Lab Results Lab Results: Lab Results: Last 24 Hours 06/22/24 06:00 WBC 3.17 L RBC 4.29 L Hgb 12.9 L Hct 38.2 L MCV 89.0 MCH 30.1 MCHC 33.8 RDW Coeff of Susan 13.4 Plt Count 128 L Immature Gran % (Auto) 0.0 Neut % (Auto) 59.0 Lymph % (Auto) 28.1 [place] % (Auto) 8.8 Eos % (Auto) 3.5 Baso % (Auto) 0.6 Neut # (Auto) 1.9 L Lymph # (Auto) 0.9 [place] # (Auto) 0.3 L Eos # (Auto) 0.1 Baso # (Auto) 0.0 Immature Gran # (Auto) 0.0 Sodium 138.7 Potassium 3.75 Chloride 105.5 Carbon Dioxide 25.8 Anion Gap 11.15 BUN 14.4 Creatinine 1.03 Estimated GFR (MDRD) 70.00 BUN/Creatinine Ratio 13.98 Glucose 144.7 H Calcium 8.36 L Total Bilirubin 0.85 AST 26.5 ALT 6.8 Alkaline Phosphatase 61.5 Total Protein 6.13 L Albumin 3.47 L Globulin 2.66 Albumin/Globulin Ratio 1.30 Additional Comments Additional Comments: I have independently reviewed and interpreted the labs/EKGs/imaging ordered during this hospital stay. I have reviewed outside records that are available in our EMR that pertain to medical stay including imaging/notes/labs from previous visits. Active Medications Active Medications: Medications Generic Name Dose Route Start Last Admin Trade Name Freq PRN Reason Stop Dose Admin Acetaminophen 650 mg 06/21/24 12:22 Acetaminophen 325 Mg Tablet PO Q4H PRN Mild Pain Atorvastatin Calcium 10 mg 06/22/24 09:00 06/22/24 09:19 Atorvastatin Calcium 10 Mg Tablet PO 10 mg DAILY SYED Administration Carbidopa/Levodopa 1 tab 06/22/24 15:00 Carbidopa/Levodopa 25/100 Tablet PO 3XD SYED Docusate Sodium 200 mg 06/22/24 09:00 06/22/24 09:19 Docusate Sodium 100 Mg Capsule PO 200 mg DAILY SYED Administration Sodium Chloride 1,000 mls @ 100 mls/hr 06/22/24 12:05 06/22/24 12:17 Sodium Chloride IV 100 mls/hr .Q10H SYED Administration Pantoprazole Sodium 40 mg 06/22/24 06:30 06/22/24 05:35 Pantoprazole Sodium 40 Mg Tablet. PO 40 mg 0630 SYED Administration Sitagliptin Phosphate 100 mg 06/22/24 09:00 06/22/24 09:19 Sitagliptin Phosphate 50 Mg Tablet PO 100 mg DAILY SYED Administration Plan Plan: 1. TIA - work-up for CVA negative thus far, unable to get MRI until Sunday or Sunday, discussed could potentially order outpatient if patient requests, symptoms have resolved currently, discussed anticoagulation with patient and requested I discuss with his prior to starting anything, neurochecks Q4H 2. Orthostatic Hypotension - Improving but persists, increase NS to 100mL/hr, hold antihypertensives, serial orthostatics Q8H 3. Parkinson's disease - Chronic, follows with [facility], discussed with patient carbidopa/levodopa side effects mentioned by neurology - agreeable to trial back down to 1 tab TID due to orthostasis 4. DM2 - chronic, ADA diet, continue januvia DVT Prophylaxis: Ambulation Review Statement Review Statement: I have personally discussed and reviewed the patient's visit/currently labs/imaging/decision making with Dr. Treadwell, my supervising attending. Greater that 50 minutes spent with patient, 50% of the time spent with this patient was devoted to counseling and coordination of care.
[2024-06-22] MEDS: SINEMET 25-100 PO SCH (15:25)
[2024-06-23 05:45] LABS: BASOPHILS % (AUTO) 0.3 % (0.0-3.0); EOSINOPHILS # (AUTO) 0.1 K/ul (0.0-0.7); EOSINOPHILS % (AUTO) 2.2 % (0.0-7.0); HEMATOCRIT 36.8 % (42.0-52.0); HEMOGLOBIN 12.6 g/dl (14.0-18.0); IMMATURE GRANULOCYTE % (AUTO) 0.3 % (0.0-5.0); LYMPHOCYTES # (AUTO) 0.8 K/uL (0.60-3.4); LYMPHOCYTES % (AUTO) 24.9 (10.0-50.0); MEAN CORPUSCULAR HEMOGLOBIN 30.8 pg (27.0-31.0); MEAN CORPUSCULAR HGB CONC 34.2 (31.8-35.4); MONOCYTES # (AUTO) 0.3 K/uL (0.4-2.0); MONOCYTES % (AUTO) 8.1 (0-10); NEUTROPHILS # (AUTO) 2.1 K/ul (2.0-6.9); NEUTROPHILS % (AUTO) 64.2 % (42.2-75.2); PLATELET COUNT 123 10^3/uL (140-440); RDW COEFFICIENT OF VARIATION 13.1 % (11.6-14.8); RED BLOOD COUNT 4.09 10^6/ul (4.70-6.10); WHITE BLOOD COUNT 3.21 K/ul (4.2-10.2)
[2024-06-23 05:49] LABS: ALANINE AMINOTRANSFERASE 6.4 U/L (0-50); ALBUMIN 3.35 g/dL (3.5-5.0); ALKALINE PHOSPHATASE 59.5 U/L (56-119); ASPARTATE AMINO TRANSFERASE 22.2 U/L (17-59); BILIRUBIN,TOTAL 0.83 mg/dL (0.2-1.3); BLOOD UREA NITROGEN 11.4 mg/dL (9-20); CALCIUM 8.43 mg/dL (8.4-10.2); CARBON DIOXIDE 29.1 mmol/L (22-30.0); CHLORIDE 107.7 mmol/L (98-107); CREATININE 1.11 mg/dL (0.60-1.10); GLUCOSE 146.4 mg/dL (74-106); POTASSIUM 3.79 mmol/L (3.5-5.1); SODIUM 139.2 mmol/L (134.5-145); TOTAL PROTEIN 5.89 g/dL (6.3-8.2)
[2024-06-23 09:40] VITALS: RESP 16
--- NOTE | 2024-06-23 13:28 | MRI ---
EXAMINATION: MRI BRAIN WITHOUT IV CONTRAST. History: Stroke Technique: Multiplanar, multisequence MRI of the brain without IV contrast. Comparison: CT head 06/21/2024. Findings: Acute infarction in the right thalamus and perez radiata.No acute hemorrhage, mass lesion, midline s hift. Moderate brain atrophy and microvascular disease. Orbits and globes intact. Ventricles appropri ate in size. Basilar cisterns clear. Flow voids demonstrated in the major intracranial vasculature. G rossly normal pituitary and sella. Normal calvarial marrow signal. Paranasal sinuses clear. Impression: Acute infarction right thalamus and perez radiata.
[2024-06-23 14:20] VITALS: BP 108/79; PULSE 96; TEMP 97.8
--- NOTE | 2024-06-23 14:45 | DCSUM ---
Admission Date Admission Date: 06/21/24 Discharge Date Discharge Date: 06/23/24 Admission Diagnosis Admission Diagnosis: 1. TIA vs CVA 2. Orthostatic hypotension Discharge Diagnosis Discharge Diagnosis: 1. 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 Orthostatic Hypotension - improved 3. Parkinson's disease - Chronic, follows with [facility] 4. DM2 Hospital Provider Hospital Provider: HARMEET ZHENG [facility]C, [facility] Primary Care Physician Primary Care Physician: DOUG CHANDRA Summary of History and Physical Summary of History and Physical: 78 yo male with pmh of TIA, Parkinson's disease, HTN, HLD, DM2, and Fatty Liver presented to the ER with AMS. Patient states that last night around 6 pm he noti suzie he could not get his phone to work and could not figure out how to work it. Then later on in the night when going to bed he was trying to turn on the flashlight on his phone and couldn't. States he just felt different and wasn't tracking well. No signs of weakness, vision deficits, speech deficits, or other symptoms. States he has been dealing with ongoing dizziness. Most recent changes include: neurologist increasing his carbidopa/levodopa dose to 25/100 2 tabs TID from 1 tab on 04/14/24, stopped plavix on 04/17/24, and having frequent dizziness at home PCP decreased his benicar dose due to lower BPs. States he has not been able to tell a difference in his tremors with the dosage increase of his carbidopa. Dizziness continues to persist despite blood pressure medicine decrease. CT head negative. Labs unremarkable. Orthostatic vital signs positive from sitting to standing with a systolic drop from 172 to 148. Admitted to med/surg observation. Hospital Course Subjective: Patient hydrated and orthostatics improved, dropping about 20 points systolic today. Denies symptoms today however. He has been ambulatory and doing well. Denies dizziness. Jasper marie applied. His carbidopa/levodopa was decreased to 1 tab TID to see if this helps as well. Pt states the increased dose has not helped his tremors. Potentially could be contributing to his orthostasis. MRI delayed due to no availability over the weekend but once done confirmed CVA showing an acute infarction of right thalamus. Report below. Per records, his pcp had stopped his ASA as well. However patient states he's actually still been taking his baby asa. After shared decision making with the patient and his (who is a health care provider), it was decided to continue baby asa and add plavix back on for now in setting of a new acute stroke. He has a f/u with neuro on 07/14. Encouraged them to discuss the stroke, orthostasis, and medications. Take disc of imaging with you. No events on tele. Will increase statin to 40 mg. Otherwise patient has no deficits currently and he is requesting to go home. Discharged to home in stable condition. Home health ordered. Appearance: Pleasant, No Apparent Distress and Alert HEENT: MMM and Supple CVS: Other (RRR) Abdomen: Soft, Non-Tender and No Distention Respiratory: No Accessory Muscle Use Extremities: No Edema Vital Signs: Most Recent Vital Signs Temperature 97.8 F 06/23/24 14:00 Temperature Source Temporal Artery Scan 06/23/24 14:00 Temperature Source Temporal Artery Scan 06/21/24 09:02 Pulse Rate 96 06/23/24 14:19 Respiratory Rate 16 06/23/24 14:00 Blood Pressure 108/79 06/23/24 14:19 Blood Pressure Mean 95 06/23/24 14:00 Blood Pressure Left Arm 155/92 06/21/24 13:38 Blood Pressure Location Right Arm 06/23/24 14:19 Blood Pressure Position Standing 06/23/24 14:19 O2 Sat by Pulse Oximetry 96 06/23/24 14:00 Oxygen Delivery Method Room Air 06/23/24 14:00 Height 6 ft 06/22/24 18:15 Weight 77.7 kg 06/22/24 18:15 Telemetry Type Bedside Monitor 06/23/24 07:00 Telemetry Monitoring Continues 06/23/24 07:00 Irregular Telemetry Rate (Approximate) 80-90 BPM 06/22/24 13:00 Telemetry Heart Rate 75 06/23/24 07:00 EKG IN Interval 0.18 06/23/24 07:00 EKG QRS Interval 0.10 06/23/24 07:00 Telemetry Strip Reading SR 06/23/24 07:00 Imaging: EXAM: BRAIN CT WITHOUT CONTRAST 06/21/2024 FINDINGS: No intracranial hemorrhage or extra-axial collection. No mass, mass effect or midline shift. The juan-white matter differentiation is preserved. Cerebral volume loss. There are patchy subcortical and periventricular white matter hypodensities, most commonly seen in chronic white matter microvascular ischemic changes. No acute hydrocephalus. The basal cisterns are patent. The visualized paranasal sinuses and mastoid air cells are clear. The orbits are unremarkable. The visualized osseous structures are unremarkable. IMPRESSION: - No acute intracranial hemorrhage or mass effect. MRI can be obtained for further evaluation as clinically indicated. - Senescent changes. Communication: Findings in the impression were discussed with Dr. Huitron by Dr. Waller at 9:46 AM EXAM: SINGLE FRONTAL VIEW OF THE CHEST HISTORY: Shortness of breath. COMPARISON: Chest x-ray 01/08/2019 FINDINGS: The cardiomediastinal silhouette is unchanged. There is no pneumothorax or effusion. There is no consolidation, nodule or mass. The osseous structures demonstrate degenerative change. IMPRESSION: No acute cardiopulmonary process EXAMINATION: MRI BRAIN WITHOUT IV CONTRAST. History: Stroke Technique: Multiplanar, multisequence MRI of the brain without IV contrast. Comparison: CT head 06/21/2024. Findings: Acute infarction in the right thalamus and perez radiata.No acute hemorrhage, mass lesion, midline shift. Moderate brain atrophy and microvascular disease. Orbits and globes intact. Ventricles appropriate in size. Basilar cisterns clear. Flow voids demonstrated in the major intracranial vasculature. Grossly normal pituitary and sella. Normal calvarial marrow signal. Paranasal sinuses clear. Impression: Acute infarction right thalamus and perez radiata. Lab Results Last 24 Hours: 06/23/24 05:30 WBC 3.21 L RBC 4.09 L Hgb 12.6 L Hct 36.8 L MCV 90.0 MCH 30.8 MCHC 34.2 RDW Coeff of Susan 13.1 Plt Count 123 L Immature Gran % (Auto) 0.3 Neut % (Auto) 64.2 Lymph % (Auto) 24.9 [place] % (Auto) 8.1 Eos % (Auto) 2.2 Baso % (Auto) 0.3 Neut # (Auto) 2.1 Lymph # (Auto) 0.8 [place] # (Auto) 0.3 L Eos # (Auto) 0.1 Baso # (Auto) 0.0 Immature Gran # (Auto) 0.0 Sodium 139.2 Potassium 3.79 Chloride 107.7 H Carbon Dioxide 29.1 Anion Gap 6.19 BUN 11.4 Creatinine 1.11 H Estimated GFR (MDRD) 64.00 BUN/Creatinine Ratio 10.27 Glucose 146.4 H Calcium 8.43 Total Bilirubin 0.83 AST 22.2 ALT 6.4 Alkaline Phosphatase 59.5 Total Protein 5.89 L Albumin 3.35 L Globulin 2.54 Albumin/Globulin Ratio 1.31 Discharge Instructions Discharge Planning: Discharge Planning > [address] Raquel Treadwell. Discharge Medications: Medications at Discharge (Home Meds & RX) esomeprazole magnesium 40 mg capsule,delayed release (Nexium) 40 mg PO DAILY 07/07/22 sitagliptin phosphate 100 mg tablet (Januvia) 100 mg PO DAILY 07/07/22 carbidopa 25 mg-levodopa 100 mg tablet 2 tab PO 3XD 06/21/24 docusate sodium 250 mg capsule 250 mg PO DAILY 06/21/24 aspirin 81 mg capsule 81 mg PO DAILY #30 caps 06/23/24 atorvastatin 40 mg tablet 40 mg PO DAILY #30 tabs 06/23/24 carbidopa 25 mg-levodopa 100 mg tablet 1 tab PO 3XD #1 tab 06/23/24 clopidogrel 75 mg tablet (Plavix) 75 mg PO DAILY #30 tabs 06/23/24 Discharge Plan Discharge Discharge Orders: Discharge Patient (ONCE); Ordered 06/23/24 Ordered By: HARMEET ZHENG Activity Restrictions/Additional Instructions: DISCHARGE TO HOME PHARMACY: ULISES RESTART PLAVIX INCREASE STATIN FOLLOW UP WITH NEUROLOGY LOWER DOSE OF CARBIDOPE/LEVODOPA TO 1 TAB TID UNTIL NEURO F/U DUE TO ORTHOSTATIC HYPOTENSION DX: CVA, ORTHOSTATIC HYPOTENSION Patient Disposition: HOME SELF-CARE Prescriptions: New carbidopa-levodopa 25-100 mg Tablet 1 tab PO 3XD Qty: 1 0RF aspirin 81 mg capsule 81 mg PO DAILY Qty: 30 0RF atorvastatin 40 mg tablet 40 mg PO DAILY Qty: 30 0RF Continued esomeprazole magnesium [Nexium] 40 mg Capsule,Delayed Release(Dr/Ec) 40 mg PO DAILY Januvia 100 mg Tablet 100 mg PO DAILY docusate sodium 250 mg capsule 250 mg PO DAILY clopidogrel [Plavix] 75 mg Tablet 75 mg PO DAILY Qty: 30 0RF Rx Instructions: WILL STOP 5 DAYS BEFORE PROCEDURE. WILL TAKE LOVENOX SUBQ, PATIENT IS UNSURE OF DOSAGE. Discontinued olmesartan [Benicar] 20 mg Tablet 20 mg PO DAILY atorvastatin 10 mg tablet 10 mg PO DAILY No Action carbidopa-levodopa 25-100 mg tablet 2 tab PO 3XD Did you review [place] [employer] for ALL controlled substances?: Not Applicable Discussed opioids are addictive and Narcan is available by prescription or from pharmacy.: No Condition: Stable Referrals: DOUG CHANDRA [Primary Care Provider] - 06/30/24 9:30 am
== END 2024-06-23 15:30 | disposition home or self-care (01) ==
LOC: ED 09:00 → SCU 09:00
PROVIDERS: ADMIT Hospitalist; ATTEND Physician Assistant
DX: I63.81 Other cerebral infarction due to occlusion or stenosis of small artery; Z20.822 Contact with and (suspected) exposure to COVID-19; I10 Essential (primary) hypertension; I95.1 Orthostatic hypotension; E11.9 Type 2 diabetes mellitus without complications; K76.0 Fatty (change of) liver, not elsewhere classified; E78.5 Hyperlipidemia, unspecified; Z51.81 Encounter for therapeutic drug level monitoring; G20.A1 Parkinson's disease without dyskinesia, without mention of fluctuations; Z79.899 Other long term (current) drug therapy; Z79.84 Long term (current) use of oral hypoglycemic drugs